=== PATIENT | female | born 1975 | race Caucasian/White ===

== ENCOUNTER 2021-12-04 18:59 | Emergency (ER) | payer MEDICAID ==
[~2021-12-04] VITALS: Ht 165.1 cm; Wt 64.2 kg
[2021-12-04 19:13] VITALS: BP 123/76
--- NOTE | 2021-12-04 19:29 | NUR ---
covid swab sent to lab
[2021-12-04] MEDS ORDERED: azithromycin 250mg tablet PO ONE (19:45)
[2021-12-04] MEDS ORDERED: AZIT250T2 PO (19:49)
--- NOTE | 2021-12-04 20:01 | NUR ---
po med given
== END 2021-12-04 20:11 | disposition home or self-care (01) ==
LOC: ER 19:00
DX: J06.9 Acute upper respiratory infection, unspecified (principal); Z20.822 Contact with and (suspected) exposure to COVID-19; N95.1 Menopausal and female climacteric states; R05.9 Cough, unspecified; F17.200 Nicotine dependence, unspecified, uncomplicated; Z90.49 Acquired absence of other specified parts of digestive tract; Z72.89 Other problems related to lifestyle; Z79.2 Long term (current) use of antibiotics
CPT/HCPCS: 71046; 87635; 99284; C9803